=== PATIENT | male | born 1945 | race American Indian/Alaskan Native ===

== ENCOUNTER 2017-04-27 06:51 | Day surgery (SDC) | payer MEDICARE, BC ==
[2017-04-27 07:38] LABS: Anion Gap 17 mmol/L; BUN/Creatinine Ratio 11; Blood Urea Nitrogen 8 mg/dL (9-20); Calcium 9.3 mg/dL (8.4-10.2); Carbon Dioxide 27 mmol/L (22-30); Chloride 93.7 mmol/L (98-107); Glucose 100 mg/dL (75-100); Potassium 3.8 mmol/L (3.6-5.0); Sodium 134 mmol/L (137-145)
[2017-04-27] MEDS ORDERED: NACL 0.9% 500 ML 500 ML IV SCH (08:00)
[2017-04-27] MEDS: XYLOCAINE 2% INFILTRATI ONE ×2 (09:12→09:26)
[2017-04-27] MEDS: VERSED ONE ×2 (09:12→09:19)
[2017-04-27] MEDS: SUBLIMAZE ONE ×2 (09:12→09:19)
[2017-04-27] MEDS: CALAN ONE ×2 (09:13→09:27)
[2017-04-27] MEDS: HEPARIN 10,000 UNITS/10 ML ONE ×2 (09:14→09:27)
[2017-04-27] MEDS: HEPARIN/NS 5000 UNIT/500ML(CATH LAB) 1,000 ML IR ONE ×2 (09:15→09:20)
[2017-04-27] MEDS: NITROGLYCERIN SYRINGE 3 ML ONE ×2 (09:16→09:27)
--- NOTE | 2017-04-27 11:23 | Short Stay Summary ---
Short Stay Documentation Date of service: 04/27/17 - History H&P: obtained from office - Allergies and Medications Current Medications: Allergies No Known Allergies Allergy (Unverified 04/27/17 06:51) Home Medications Medication Instructions Recorded Confirmed Last Taken Type Aspirin [Lo-Dose Aspirin EC] 81 mg PO DAILY 04/27/17 04/27/17 04/26/17 History Losartan/Hydrochlorothiazide 1 each PO DAILY 04/27/17 04/27/17 04/27/17 05:30 History [Hyzaar 100-12.5 Tablet] Meloxicam 15 mg PO DAILY 04/27/17 04/27/17 04/27/17 05:30 History sulfaSALAzine [Azulfidine] 500 mg PO DAILY 04/27/17 04/27/17 04/27/17 05:30 History Active Medications Sodium Chloride (Nacl 0.9% 500 Ml) 500 mls @ 50 mls/hr IV DIRECT SIVA Stop: 04/27/17 17:59 Last Admin: 04/27/17 07:30 Dose: 50 mls/hr - Brief post op/procedure progress note Date of procedure: 04/27/17 Pre-op diagnosis: pad Post-op diagnosis: same Procedure: see report Anesthesia: local Estimated blood loss: none Pathology: none - Disposition Condition at discharge: Good Disposition: DC-01 TO HOME OR SELFCARE - Discharge Diagnoses (1) PAD (peripheral artery disease) Status: Chronic (2) Hypertension Status: Chronic Qualifiers: Hypertension type: essential hypertension Qualified Code(s): I10 - Essential (primary) hypertension (3) Hyperlipemia Status: Chronic Qualifiers: Hyperlipidemia type: pure hypercholesterolemia Qualified Code(s): E78.00 - Pure hypercholesterolemia, unspecified; E78.0 - Pure hypercholesterolemia (4) Smoker Status: Chronic (5) Claudication Status: Chronic Short Stay Discharge Plan Activity: advance as tolerated Diet: low fat, low cholesterol Wound: keep clean and dry Follow up with: BRAVO CHRISTIANSEN MD [Staff Physician] - 7 Days
[2017-04-27 13:23] VITALS: BP 146/76
--- NOTE | 2017-04-27 13:55 | Cardiac Catherization Report ---
PROCEDURE: Peripheral angiogram. CLINICAL INFORMATION: This is a 72-year-old -[place] gentleman with hypertension, hyperlipidemia, smoker, has claudication symptoms and abnormal ultrasound shows occlusive disease and bilateral SFAs with monophasic flow, so peripheral angiogram was performed via the right radial artery, sterile technique, local anesthesia, 6-Salvadorean radial sheath inserted. Normal Jason's test. See details. A pigtail catheter was placed in the distal abdominal aorta and runoff was done following findings: 1. Abdominal aorta patent. 2. Bilateral common iliacs patent with moderate tortuosity of the right iliac. 3. Bilateral internal and external iliacs patent. 4. Right common femoral artery has a 30% lesion. Profunda is patent. Then SFA proximal is 100%, mid is 100%, feeds via profunda collateralizations, distal is patent, and popliteal patent, and trifurcates anterior tibial proximal is 100%, TP trunk is patent. Peroneal is diffusely diseased, proximal about 70% and there is a focal lesion 80% at the posterior tibial. 5. Left common femoral and profunda are patent. The left SFA proximal almost ostial is 100% with a mid 70%, distal patent, popliteal patent. Anterior tibial again is 100% proximally and then TP trunk is patent. Posterior tibial proximal 80%, peroneal also is 80%. Pigtail catheter was taken over a guidewire, 6-Salvadorean radial sheath was discontinued. Radial dressing applied. No hematoma. No bleeding. SUMMARY: 1. Iliac system patent, moderate tortuosity. 2. Right SFA proximal is 100%, mid 100% with right common femoral artery 30% with 1.5 vessel runoff, anterior tibial 100%, peroneal proximally 80%, and posterior tibial proximal 80%. 3. Left SFA proximal , ostial 100%, mid 70% with anterior tibial is 100%, peroneal 80%, posterior tibial 100%, focal lesions proximally . The patient will proceed with RESISTOR TESTING MACHINE OPERATOR of the right SFA as the patient stated he has more claudications on the right compared to left. JOB# [id number] ELLIE/EARLENE ONEAL
== END 2017-04-27 12:50 | disposition home or self-care (01) ==
LOC: CATHLABREC 06:51
PROVIDERS: ATTEND Internal Medicine
DX: I70.213 Atherosclerosis of native arteries of extremities with intermittent claudication, bilateral legs (principal); I10 Essential (primary) hypertension; E78.5 Hyperlipidemia, unspecified; F17.200 Nicotine dependence, unspecified, uncomplicated; I77.89 Other specified disorders of arteries and arterioles; Z79.82 Long term (current) use of aspirin; Z79.899 Other long term (current) drug therapy
CPT/HCPCS: 36200; 36415; 75630; 80048; 99156; 99157; C1894; J1644; J2250; J3010; J7040; Q9967

== ENCOUNTER 2017-05-15 07:21 | Day surgery (SDC) | payer MEDICARE, BC ==
[2017-05-15] MEDS ORDERED: NACL 0.9% 500 ML 500 ML ONE (07:44)
[2017-05-15] MEDS ORDERED: NACL 0.9% 500 ML 500 ML IV SCH (08:00)
[2017-05-15 08:14] LABS: Eosinophils % (Auto) 1.9 % (0.0-4.3); Hematocrit 37.1 % (35.5-45.6); Hemoglobin 12.8 gm/dl (11.8-15.2); Mean Corpuscular HGB Conc 34 % (32-34); Mean Corpuscular Hemoglobin 34 pg (28-32); Mean Corpuscular Volume 99 fl (84-94); Platelet Count 193 K/mm3 (140-440); Red Blood Count 3.77 M/mm3 (3.65-5.03); Red Cell Distribution Width 14.6 % (13.2-15.2)
[2017-05-15 08:23] LABS: INR 0.91 (0.87-1.13)
[2017-05-15 08:33] LABS: BUN/Creatinine Ratio 13; Blood Urea Nitrogen 10 mg/dL (9-20); Calcium 9.2 mg/dL (8.4-10.2); Carbon Dioxide 25 mmol/L (22-30); Glucose 98 mg/dL (75-100)
[2017-05-15 08:34] LABS: Anion Gap 21 mmol/L; Chloride 95.1 mmol/L (98-107); Potassium 3.8 mmol/L (3.6-5.0); Sodium 137 mmol/L (137-145)
[2017-05-15] MEDS ORDERED: HEPARIN 10,000 UNITS/10 ML ONE (09:08)
[2017-05-15] MEDS ORDERED: XYLOCAINE 2% INFILTRATI ONE (09:09)
[2017-05-15] MEDS: HEPARIN/NS 5000 UNIT/500ML(CATH LAB) 1,000 ML IR ONE ×2 (09:20→09:39)
[2017-05-15] MEDS: VERSED ONE ×2 (09:23→09:58)
[2017-05-15] MEDS: SUBLIMAZE ONE ×2 (09:23→09:58)
[2017-05-15] MEDS ORDERED: ANGIOMAX IV ONE ×2 (09:33→10:05)
[2017-05-15] MEDS ORDERED: NACL 0.9% 50 ML ONE ×2 (09:33→10:04)
[2017-05-15] MEDS ORDERED: HEPARIN/NS 5000 UNIT/500ML(CATH LAB) 500 ML IR ONE (09:54)
--- NOTE | 2017-05-15 10:50 | Short Stay Summary ---
Short Stay Documentation Date of service: 05/15/17 - History H&P: obtained from office - Allergies and Medications Current Medications: Allergies No Known Allergies Allergy (Unverified 04/27/17 06:51) Home Medications Medication Instructions Recorded Confirmed Last Taken Type Aspirin [Lo-Dose Aspirin EC] 81 mg PO DAILY 04/27/17 05/15/17 05/15/17 05:00 History Losartan/Hydrochlorothiazide 1 each PO DAILY 04/27/17 05/15/17 05/15/17 05:00 History [Hyzaar 100-12.5 Tablet] Meloxicam 15 mg PO DAILY 04/27/17 05/15/17 05/15/17 05:00 History sulfaSALAzine [Azulfidine] 500 mg PO DAILY 04/27/17 05/15/17 05/15/17 05:00 History Active Medications Sodium Chloride (Nacl 0.9% 500 Ml) 500 mls @ 50 mls/hr IV DIRECT SIVA Stop: 05/15/17 17:59 Last Admin: 05/15/17 08:13 Dose: 50 mls/hr - Brief post op/procedure progress note Date of procedure: 05/15/17 Pre-op diagnosis: claudication Post-op diagnosis: same Procedure: see report Anesthesia: local Estimated blood loss: none Pathology: none - Disposition Condition at discharge: Good Disposition: DC-01 TO HOME OR SELFCARE - Discharge Diagnoses (1) Claudication Status: Chronic (2) Hyperlipemia Status: Chronic Qualifiers: Hyperlipidemia type: mixed hyperlipidemia Qualified Code(s): E78.2 - Mixed hyperlipidemia (3) Hypertension Status: Chronic Qualifiers: Hypertension type: essential hypertension (4) PAD (peripheral artery disease) Status: Chronic (5) Smoker Status: Chronic Short Stay Discharge Plan Activity: advance as tolerated Diet: low cholesterol, low salt Wound: keep clean and dry Follow up with: BRAVO CHRISTIANSEN MD [Staff Physician] - 7 Days Prescriptions: Cilostazol [Pletal] 100 mg PO BID 30 Days #60 tablet
[2017-05-15 17:38] VITALS: BP 177/63
--- NOTE | 2017-05-22 12:28 | Cardiac Catherization Report ---
PERIPHERAL ANGIOGRAM INTERVENTIONAL REPORT CLINICAL INFORMATION: This is a 72-year-old -[place]onese gentleman with hypertension, hyperlipidemia, is a smoker, who has been having claudication symptoms and peripheral angiogram showed right SFA to be occluded with 2-vessel runoff, is here for BRAILLE PROOFREADER of the right SFA given continued claudication symptoms. PROCEDURE IN DETAIL: Was performed by the left common femoral artery until access was gained with a 5-Romanian groin sheath inserted. Used an Advantage wire and a rim catheter and placed Advantage wire into the right profunda and removed the rim catheter and 5-Romanian groin sheath and placed a 7-Romanian destination sheath from the left common femoral artery to the right common femoral artery. Tried attempted BRAILLE PROOFREADER of the right SFA using a vertebral catheter and Advantage wire, was trying to tunnel through the right SFA occlusion, unfortunately was in a dissection plane, changed out for a [employer] ____ without success, used a Trailblazer catheter. Multiple angiograms showed to be at the side of the true vessel, unable using multiple catheters and attempt to get into the true lumen. In view of unsuccessful terminate procedure, removed the Advantage wire, ____, catheters and repeat angiogram through the sheath, which showed continued flow via the profunda feeding into the distal SFA with 2-vessel runoff, no extravasation or perforation noted. A 7-Romanian destination sheath was removed over a guidewire, 7-Romanian short groin sheath was sewn in. No hematoma, no bleeding. SUMMARY: 1. Unsuccessful BRAILLE PROOFREADER of the right SFA with antegrade approach despite multiple techniques. 2. We will continue aspirin, Pletal. If the patient fails medical therapy and smoking cessation, we will try a ____ approach. Discussed this in detail with the patient and the patient's family. JOB# [id number] ELLIE/EARLENE
== END 2017-05-15 17:58 | disposition home or self-care (01) ==
LOC: CATHLABREC 07:21
PROVIDERS: ATTEND Internal Medicine
DX: I70.213 Atherosclerosis of native arteries of extremities with intermittent claudication, bilateral legs (principal); E78.2 Mixed hyperlipidemia; I10 Essential (primary) hypertension; F17.200 Nicotine dependence, unspecified, uncomplicated; Z79.01 Long term (current) use of anticoagulants; Z79.82 Long term (current) use of aspirin; Z79.899 Other long term (current) drug therapy
CPT/HCPCS: 36247; 36415; 75710; 80048; 85025; 85347; 85610; 85730; 99156; 99157; C1725; C1769; C1887; J0583; J1644; J2250; J3010; J7040; Q9967

== ENCOUNTER 2017-07-19 07:14 | Day surgery (SDC) | payer MEDICARE ==
[~2017-07-19 07:14] MED LIST: TETRACAINE 0.5% OS PRN
[2017-07-19] MEDS ORDERED: NACL BACTERIOSTATIC INFILTRATI ONE (08:05)
[2017-07-19] MEDS: AK-Dilate OS SCH ×3 (08:10→08:20)
[2017-07-19] MEDS: VIGAMOX OS SCH ×3 (08:10→08:20)
[2017-07-19] MEDS: MYDRIACYL OS SCH ×3 (08:10→08:20)
--- NOTE | 2017-07-19 08:36 | Anesthesia Consultation ---
Anesthesia Consult and Med Hx Date of service: 07/19/17 - Airway Anesthetic Teeth Evaluation: Good ROM Head & Neck: Adequate Mental/Hyoid Distance: Adequate Mallampati Class: Class I Intubation Access Assessment: Good - Pulmonary Exam CTA: Yes - Cardiac Exam Cardiac Exam: RRR - Pre-Operative Health Status ASA Pre-Surgery Classification: ASA2 Proposed Anesthetic Plan: MAC - Pulmonary Hx Smoking: Yes (LIGHT FOR 15 YEARS) Hx Pneumonia: Yes () - Cardiovascular System Hx Hypertension: Yes (3 YEARS) Hx Heart Attack/AMI: No - Central Nervous System Hx Psychiatric Problems: No - Hematic Hx Anemia: No - Other Systems Hx Alcohol Use: Yes (8-14 DRINKS/WEEK) Hx Substance Use: No Hx Cancer: No
--- NOTE | 2017-07-19 08:36 | Anesthesia Day of Surgery ---
Anesthesia Day of Surgery - Day of Surgery Patient Examined: Yes Patient H&P Reviewed: Yes Patient is NPO: Yes
[2017-07-19] MEDS ORDERED: VERSED ONE (09:17)
[2017-07-19] MEDS ORDERED: SUBLIMAZE ONE (09:17)
--- NOTE | 2017-07-19 09:33 | Post Anesthesia Evaluation ---
- Post Anesthesia Evaluation Patient Participated: Yes Airway Patent: Yes Stable Respiratory Function: Yes Nausea/Vomiting: No Temp > 96.8F: Yes Pain Manageable: Yes Adequeate Hydration: Yes Anesthesia Complications: No
[2017-07-19] MEDS ORDERED: DIAMOX PO ONE (10:02)
--- NOTE | 2017-07-19 10:03 | Operative Report ---
Operative Report Operative Report: PATIENT'S NAME: DATE OF : DATE OF SURGERY: 07/19/2017 PREOPERATIVE DIAGNOSIS: Cataract left eye POSTOPERATIVE DIAGNOSIS: Same OPERATIVE PROCEDURE: Phacoemulsification with intraocular lens implantation, left eye SURGEON: Chelsea Gracia M.D. MEDICAL APPARATUS MODEL MAKER SURGEON: Vandana Lens: [id number] 15.5 D ANESTHESIA: Monitored anesthesia care in combination with topical and intracameral anesthesia because of the established specific risk of reflux, arrhythmias, or anxiety attacks associated with ocular manipulation, as well as the difficulty of the cushion former to manage such potentially catastrophic events while simultaneously attempting to complete the surgical procedure and was deemed necessary for the patient's safety to have an Manager Athletics present during the procedure whenever possible. An Manager Athletics was utilized to regulate the intravenous sedation of the patient so the patient was cooperative yet not asleep in order for the patient to successfully maintain fixation of the eye on the operating light of the microscope. COMPLICATIONS: No surgical complications No blood loss. ALLERGIES: No known drug allergies PROGNOSIS: Excellent INDICATIONS FOR SURGERY: The patient is undergoing surgery in the hopes of eliminating or improving these visual difficulties. PROCEDURE: After arriving at the surgery center, the patient was given topical anesthetic and dilating drops, as noted in the record. The patient was then taken into the operating room and given more anesthetic drops. The eyelids , lashes, and lid margins were scrubbed with Betadine solution, and the patient was draped. The Nurse Manager Athletics administered IV sedation and monitored the patient during the procedure. The eye was then fixated with a 0.12, and a stab incision was made in the peripheral clear cornea into the anterior chamber. This was made on my left side. Viscoelastic was next used to fill the anterior chamber. The eye was once again fixated with the 0.12 forceps and a keratome was used make an incision in clear cornea peripherally on my right hand side temporally. The capsule forceps were used to open the central anterior capsule and then make a continuous round capsulotomy. Hydrodissection was carried out utilizing a cannula and balanced salt solution to delineate the cortical material from the capsule and the nucleus from the cortical material. The phaco tip was introduced into the eye and used to remove the anterior cortical material in the area of the capsulotomy. Then the phaco tip was buried into the nucleus, and a chopping instrument was introduced into the eye and used to provide countertraction in the nucleus between this instrument and the phaco tip fracturing the nucleus. This procedure was repeated multiple times, providing multiple small segments of the lens, and then the phaco tip was used to remove each of these segments. An I/A tip was then used to remove the remaining cortex. The anterior chamber was refilled with viscoelastic. An one-piece, acrylic intraocular lens was then placed into an inserting cartridge. The tip of the inserting cartridge was introduced into the keratome incision and into the anterior chamber. The implant was gently advanced through the cartridge and into the eye, where it unfolded, and both haptics were placed in the capsular bag, where it centered nicely and appeared to be well fixated. After placement of the intraocular lens, the I~and~A handpiece was placed back into the eye and used to remove the viscoelastic, including viscoelastic that was behind the optic of the intraocular lens. The anterior chamber was then filled with balanced salt solution, and hydration of the wound was used to cause swelling of the wound and more appropriate watertight closure. When the wound was found to be firm, the patient was asked to comment on how bright the light was. If there was no light perception at all or if the light was substantially dimmer than during the rest of the surgery, the amount of fluid in the eye was decompressed to lower the intraocular pressure until the patient could see the bright light again. This was done to avoid any damage or decreased blood flow to the optic nerve. MEDICATIONS APPLIED AT END OF SURGERY: One drop of Pred Forte and Vigamox The patient was given a shield to wear at night and was instructed not to rub or push on the eye. DISCHARGE SUMMARY: The patient was released in stable condition. The patient and those with the patient were given a written sheet of postoperative instructions and counseling on any abnormal laboratory studies. The patient is to see us tomorrow for follow-up in the office and is to call immediately for any difficulties. Chelsea Gracia M.D. Date
--- NOTE | 2017-07-19 10:04 | Short Stay Summary ---
Short Stay Documentation Date of service: 07/19/17 - History H&P: obtained from office - Allergies and Medications Current Medications: Allergies No Known Allergies Allergy (Verified 07/18/17 10:15) Home Medications Medication Instructions Recorded Confirmed Last Taken Type Aspirin [Lo-Dose Aspirin EC] 81 mg PO DAILY 04/27/17 07/18/17 07/18/17 History Losartan/Hydrochlorothiazide 1 each PO DAILY 04/27/17 07/18/17 07/19/17 06:00 History [Hyzaar 100-12.5 Tablet] Meloxicam 15 mg PO DAILY 04/27/17 07/18/17 07/18/17 History sulfaSALAzine [Azulfidine] 500 mg PO DAILY 04/27/17 07/18/17 07/19/17 06:00 History Cilostazol [Pletal] 100 mg PO BID 30 Days #60 tablet 05/15/17 07/18/17 07/18/17 Rx Active Medications Acetazolamide (Diamox) 500 mg PO BID ONE Stop: 07/19/17 10:03 Moxifloxacin HCl (Vigamox) 1 drops OS Q5MIN SIVA Stop: 07/21/17 06:01 Last Admin: 07/19/17 08:20 Dose: 1 drops Phenylephrine HCl (Ak-Dilate) 1 drops OS Q5MIN SIVA Stop: 07/21/17 06:01 Last Admin: 07/19/17 08:20 Dose: 1 drops Prednisolone Acetate (Pred Forte 1%) 1 drops OS QID SIVA Tetracaine HCl (Tetracaine 0.5%) 1 drops OS Q5M PRN PRN Reason: Analgesia Last Admin: 07/19/17 08:10 Dose: 1 drops Tropicamide (Mydriacyl) 1 drops OS Q5MIN SIVA Stop: 07/21/17 06:01 Last Admin: 07/19/17 08:20 Dose: 1 drops - Brief post op/procedure progress note Date of procedure: 07/19/17 Pre-op diagnosis: left cataract Post-op diagnosis: same Procedure: Phacoemulsification with intraocular lens insertion left eye Anesthesia: MAC, local Surgeon: NIC VARNER Estimated blood loss: none Pathology: none Condition: stable - Disposition Condition at discharge: Good Disposition: DC-01 TO HOME OR SELFCARE - Discharge Diagnoses (1) Cataract Status: Acute Qualifiers: Cataract type: age-related Age-related cataract type: nuclear Laterality : left Qualified Code(s): H25.12 - Age-related nuclear cataract, left eye Short Stay Discharge Plan Follow up with: PARUL FLORES MD [Primary Care Provider] - 7 Days
[2017-07-19] MEDS ORDERED: PRED FORTE 1% ONE (10:39)
[2017-07-19] MEDS: PRED FORTE 1% OS SCH ×2 (10:48→11:00)
[2017-07-19 13:42] VITALS: BP 150/89
== END 2017-07-19 07:15 | disposition home or self-care (01) ==
LOC: OR 07:14
DX: H26.9 Unspecified cataract (principal); I10 Essential (primary) hypertension; M19.90 Unspecified osteoarthritis, unspecified site; Z79.82 Long term (current) use of aspirin; Z79.899 Other long term (current) drug therapy; F17.200 Nicotine dependence, unspecified, uncomplicated
CPT/HCPCS: 66984; J2250; J3010; V2632

== ENCOUNTER 2017-08-02 06:44 | Day surgery (SDC) | payer MEDICARE ==
[~2017-08-02 06:44] MED LIST changes: +ADRENALINE P/F IV ONE; +MIOSTAT OU ONE; +TETRACAINE 0.5% OD PRN; -TETRACAINE 0.5% OS PRN; +VISCOAT IO ONE
--- NOTE | 2017-08-02 07:39 | Anesthesia Consultation ---
Anesthesia Consult and Med Hx - Airway Anesthetic Teeth Evaluation: Dentures, Edentulous ROM Head & Neck: Adequate Mental/Hyoid Distance: Adequate Mallampati Class: Class II Intubation Access Assessment: Good - Pulmonary Exam CTA: Yes - Cardiac Exam Cardiac Exam: RRR - Pre-Operative Health Status ASA Pre-Surgery Classification: ASA2 Proposed Anesthetic Plan: MAC - Pulmonary Hx Smoking: Yes Hx Pneumonia: Yes () - Cardiovascular System Hx Hypertension: Yes (take BP medication) Hx Heart Attack/AMI: No - Central Nervous System Hx Psychiatric Problems: No - Hematic Hx Anemia: No - Other Systems Hx Cancer: Yes
[2017-08-02] MEDS: VIGAMOX OD SCH ×3 (07:50→08:00)
[2017-08-02] MEDS: MYDRIACYL OD SCH ×3 (07:50→08:00)
[2017-08-02] MEDS: AK-Dilate OD SCH ×3 (07:50→08:00)
[2017-08-02] MEDS ORDERED: VERSED ONE ×2 (08:55→09:39)
[2017-08-02] MEDS ORDERED: SUBLIMAZE ONE (08:59)
[2017-08-02] MEDS ORDERED: ADRENALINE P/F IV ONE (09:07)
[2017-08-02] MEDS ORDERED: VISCOAT IO ONE ×3 (09:12→11:01)
[2017-08-02] MEDS ORDERED: MIOSTAT OD ONE (09:44)
[2017-08-02] MEDS ORDERED: DIAMOX PO ONE ×2 (10:05→10:30)
--- NOTE | 2017-08-02 10:12 | Operative Report ---
Operative Report Operative Report: PATIENT'S NAME: DATE OF : DATE OF SURGERY: 08/02/2017 PREOPERATIVE DIAGNOSIS: Cataract right eye POSTOPERATIVE DIAGNOSIS: Same OPERATIVE PROCEDURE: Phacoemulsification with intraocular lens implantation, and anterior vitrectomy right eye SURGEON: Chelsea Gracia M.D. EVENT SPECIALIST PRODUCT DEMONSTRATOR SURGEON: Vandana Lens: [id number] 15.5 D ANESTHESIA: Monitored anesthesia care in combination with topical and intracameral anesthesia because of the established specific risk of reflux, arrhythmias, or anxiety attacks associated with ocular manipulation, as well as the difficulty of the ballet teacher to manage such potentially catastrophic events while simultaneously attempting to complete the surgical procedure and was deemed necessary for the patient's safety to have an Apartment Assistant Manager present during the procedure whenever possible. An Apartment Assistant Manager was utilized to regulate the intravenous sedation of the patient so the patient was cooperative yet not asleep in order for the patient to successfully maintain fixation of the eye on the operating light of the microscope. COMPLICATIONS: Posterior capsular rupture No blood loss. ALLERGIES: [No known drug allergies] PROGNOSIS: Excellent INDICATIONS FOR SURGERY: The patient is undergoing surgery in the hopes of eliminating or improving these visual difficulties. PROCEDURE: After arriving at the surgery center, the patient was given topical anesthetic and dilating drops, as noted in the record. The patient was then taken into the operating room and given more anesthetic drops. The eyelids , lashes, and lid margins were scrubbed with Betadine solution, and the patient was draped. The Nurse Apartment Assistant Manager administered IV sedation and monitored the patient during the procedure. The eye was then fixated with a 0.12, and a stab incision was made in the peripheral clear cornea into the anterior chamber. This was made on my left side. Viscoelastic was next used to fill the anterior chamber. The eye was once again fixated with the 0.12 forceps and a keratome was used make an incision in clear cornea peripherally on my right hand side temporally. The capsule forceps were used to open the central anterior capsule and then make a continuous round capsulotomy. Hydrodissection was carried out utilizing a cannula and balanced salt solution to delineate the cortical material from the capsule and the nucleus from the cortical material. The phaco tip was introduced into the eye and used to remove the anterior cortical material in the area of the capsulotomy. Then the phaco tip was buried into the nucleus, and a chopping instrument was introduced into the eye and used to provide countertraction in the nucleus between this instrument and the phaco tip fracturing the nucleus. This procedure was repeated multiple times, providing multiple small segments of the lens, and then the phaco tip was used to remove each of these segments. An I/A tip was then used to remove the remaining cortex. Posterior capsular rupture was noted with vitreous protruding in the anterior cahmber. Anterior vitrectomy was completed. The anterior chamber was refilled with viscoelastic. An 3-piece, acrylic intraocular lens was then placed into an inserting cartridge. The tip of the inserting cartridge was introduced into the keratome incision and into the anterior chamber. The implant was gently advanced through the cartridge and into the eye, where it unfolded, and both haptics were placed in the sulcus, where it centered nicely and appeared to be well fixated. After placement of the intraocular lens, the I~and~A handpiece was placed back into the eye and used to remove the viscoelastic, including viscoelastic that was behind the optic of the intraocular lens. The anterior chamber was then filled with balanced salt solution, and hydration of the wound was used to cause swelling of the wound and more appropriate watertight closure. When the wound was found to be firm, the patient was asked to comment on how bright the light was. If there was no light perception at all or if the light was substantially dimmer than during the rest of the surgery, the amount of fluid in the eye was decompressed to lower the intraocular pressure until the patient could see the bright light again. This was done to avoid any damage or decreased blood flow to the optic nerve. MEDICATIONS APPLIED AT END OF SURGERY: One drop of Pred Forte and Vigamox The patient was given a shield to wear at night and was instructed not to rub or push on the eye. DISCHARGE SUMMARY: The patient was released in stable condition. The patient and those with the patient were given a written sheet of postoperative instructions and counseling on any abnormal laboratory studies. The patient is to see us tomorrow for follow-up in the office and is to call immediately for any difficulties. Chelsea Gracia M.D. Date
--- NOTE | 2017-08-02 10:14 | Short Stay Summary ---
Short Stay Documentation Date of service: 08/02/17 - History H&P: obtained from office - Allergies and Medications Current Medications: Allergies No Known Allergies Allergy (Verified 08/01/17 13:38) Home Medications Medication Instructions Recorded Confirmed Last Taken Type Aspirin [Lo-Dose Aspirin EC] 81 mg PO DAILY 04/27/17 08/02/17 08/02/17 History Losartan/Hydrochlorothiazide 1 each PO DAILY 04/27/17 08/02/17 08/02/17 History [Hyzaar 100-12.5 Tablet] Meloxicam 15 mg PO DAILY 04/27/17 08/02/17 08/02/17 History sulfaSALAzine [Azulfidine] 500 mg PO DAILY 04/27/17 08/02/17 08/02/17 History Cilostazol [Pletal] 100 mg PO BID 30 Days #60 tablet 05/15/17 08/02/17 08/02/17 Rx Active Medications Acetazolamide (Diamox) 500 mg PO BID ONE Stop: 08/02/17 10:10 Moxifloxacin HCl (Vigamox) 1 drops OD Q5MIN SIVA Stop: 08/02/17 23:59 Last Admin: 08/02/17 08:00 Dose: 1 drops Phenylephrine HCl (Ak-Dilate) 1 drops OD Q5MIN SIVA Stop: 08/02/17 23:59 Last Admin: 08/02/17 08:00 Dose: 1 drops Prednisolone Acetate (Pred Forte 1%) 1 drops OD QID SIVA Tetracaine HCl (Tetracaine 0.5%) 1 drops OD Q5M PRN PRN Reason: Analgesia Stop: 08/02/17 23:59 Last Admin: 08/02/17 07:49 Dose: 1 drops Tropicamide (Mydriacyl) 1 drops OD Q5MIN SIVA Stop: 08/02/17 23:59 Last Admin: 08/02/17 08:00 Dose: 1 drops - Brief post op/procedure progress note Date of procedure: 08/02/17 Pre-op diagnosis: right cataract Post-op diagnosis: same Procedure: Phacoemulsification with anterior vitrectomy right eye Anesthesia: MAC, local Surgeon: NIC VARNER Estimated blood loss: none Pathology: none Condition: stable - Disposition Condition at discharge: Good Disposition: DC-01 TO HOME OR SELFCARE - Discharge Diagnoses (1) Cataract Status: Acute Qualifiers: Cataract type: age-related Age-related cataract type: nuclear Laterality : right Qualified Code(s): H25.11 - Age-related nuclear cataract, right eye Short Stay Discharge Plan Follow up with: PARUL FLORES MD [Primary Care Provider] - 7 Days Forms: [facility]
[2017-08-02] MEDS ORDERED: PRED FORTE 1% OD SCH (10:30)
[2017-08-02] MEDS ORDERED: MIOSTAT ONE (11:01)
[2017-08-02] MEDS ORDERED: ADRENALINE P/F ONE (11:01)
[2017-08-02 11:03] VITALS: BP 179/93
--- NOTE | 2017-08-02 13:03 | Anesthesia Day of Surgery ---
Anesthesia Day of Surgery - Day of Surgery Patient Examined: Yes Patient H&P Reviewed: Yes Patient is NPO: Yes
== END 2017-08-02 06:45 | disposition home or self-care (01) ==
LOC: OR 06:44
DX: H26.9 Unspecified cataract (principal); M19.90 Unspecified osteoarthritis, unspecified site; I10 Essential (primary) hypertension; B19.20 Unspecified viral hepatitis C without hepatic coma; F17.200 Nicotine dependence, unspecified, uncomplicated; Z21 Asymptomatic human immunodeficiency virus [HIV] infection status; Z85.9 Personal history of malignant neoplasm, unspecified; Z79.82 Long term (current) use of aspirin
CPT/HCPCS: 66984; 67010; J0171; J2250; J3010; V2632